=== PATIENT | male | born 1970 | race Hispanic/Latino ===

== ENCOUNTER 2021-07-26 11:49 | Emergency (ER) | payer OTHER ==
[~2021-07-26] VITALS: Ht 160 cm; Wt 79.0 kg
[2021-07-26] MEDS ORDERED: VOLTAREN1%GEL TOP (13:09)
[2021-07-26] MEDS ORDERED: MOTRIN400 MG/TAB PO (13:09)
[2021-07-26 13:20] VITALS: BP 140/89
== END 2021-07-26 13:20 | disposition home or self-care (01) | DRG 556 ==
LOC: ED 11:49
DX: M25.511 Pain in right shoulder (principal); F17.210 Nicotine dependence, cigarettes, uncomplicated